=== PATIENT | male | born 1945 | race Caucasian/White ===

== ENCOUNTER 2017-12-20 10:13 | Day surgery (SDC) | payer MEDICARE ==
[2017-12-19 16:30] LABS: BASOPHILS % (AUTO) 0.6 % (0-1); EOSINOPHILS # (AUTO) 0.5 X10'3 (0-0.9); EOSINOPHILS % (AUTO) 7.4 % (0-6); LYMPHOCYTES % (AUTO) 27.1 % (21-51); MEAN CORPUSCULAR HEMOGLOBIN 29.9 PG (27.0-31.0); MEAN CORPUSCULAR HGB CONC 33.4 % (33.0-36.5); MEAN CORPUSCULAR VOLUME 89.4 FL (78-98); MEAN PLATELET VOLUME 8.1 FL (7.4-10.4); MONOCYTES # (AUTO) 0.7 X10'3 (0-0.9); MONOCYTES % (AUTO) 9.6 % (2-12); NEUTROPHILS % (AUTO) 55.3 % (42-75); PRE OP HEMATOCRIT 40.7 % (42.0-52.0); PRE OP HEMOGLOBIN 13.6 g/dL (14.0-17.9); PRE OP PLATELET COUNT 254 X10'3 (140-440); RED BLOOD COUNT 4.55 X10'6 (4.70-6.10); RED CELL DISTRIBUTION WIDTH 14.1 % (11.5-14.5)
[2017-12-19 16:41] LABS: CLARITY,URINE Clear (Clear); COLOR,URINE Yellow (Yellow); GLUCOSE, URINE Negative (Neg); KETONES,URINE 15 mg/dl (Neg); LEUKOCYTE ESTERASE ,URINE Negative (Neg); NITRITES, URINE Negative (Neg); OCCULT BLOOD,URINE Negative (Neg); PH,URINE 6.5 (4.8-8.0); PROTEIN,URINE Negative (Neg)
[2017-12-19 16:46] LABS: UA COLLECTION TYPE CLN CATCH MIDSTREAM
[2017-12-19 16:51] LABS: ALBUMIN 3.7 G/DL (3.4-5.0); ALBUMIN/GLOBULIN RATIO 1.2 (1.1-1.5); ALKALINE PHOSPHATASE 97 IU/L (46-116); BLOOD UREA NITROGEN 17 MG/DL (7-18); CALCIUM 9.1 MG/DL (8.5-10.1); CHLORIDE 104 MMOL/L (99-107); CREATININE 0.81 MG/DL (0.60-1.10); PRE OP ALT 23 U/L (30-65); PRE OP ANION GAP 6 (8-16); PRE OP AST 20 U/L (10-37); PRE OP BILIRUB, TOTAL 0.4 MG/DL (0.0-1.0); PRE OP GLUCOSE 99 MG/DL (70-104); PRE OP POTASSIUM 3.8 MMOL/L (3.4-5.1); PRE OP SODIUM 140 MMOL/L (135-145); TOTAL CARBON DIOXIDE 30.2 MMOL/L (24-32); TOTAL PROTEIN 6.9 G/DL (6.4-8.2); eGFR > 90 ML/MIN
[2017-12-20] VITALS (9 sets, daily range): BP systolic 118–135; BP diastolic 70–90
[~2017-12-20] VITALS: Ht 170.2 cm; Wt 76.0 kg
[~2017-12-20 10:13] MED LIST: NO HOME MEDS PO; albuterol 2.5 MG/3 ML nebule NEB ONE; ceFAZolin 2gm in dextrose, iso 100 ML IV ONE; famotidine 20mg tablet PO ONE; ringers solution, lacted 1,000 ML IV SCH
[2017-12-20] MEDS ORDERED: ringers solution, lacted 1,000 ML IV SCH (10:54)
[2017-12-20] MEDS ORDERED: ceFAZolin 1000mg inj ONE (10:55)
[2017-12-20] MEDS ORDERED: hydrALAZINE 20mg/ml inj. IV PRN (10:55)
[2017-12-20] MEDS ORDERED: morphine 4 MG/ML inj SYRINge IV PRN ×2 (10:55)
[2017-12-20] MEDS ORDERED: fentaNYL/PF 50MCG/1 ML 2ML syringe IV PRN ×2 (10:55)
[2017-12-20] MEDS ORDERED: ondansetron/PF 4mg/2ml inj IV PRN (10:55)
[2017-12-20] MEDS ORDERED: BUPIVAcaine/PF 7.5mg/ml (0.75%) 10ml vial ONE (10:55)
[2017-12-20] MEDS ORDERED: labetalol 20mg/4ml (5mg/ml) syringe IV PRN (10:55)
[2017-12-20] MEDS ORDERED: sevoflurane 250ml liquid IH ONE (12:09)
[2017-12-20] MEDS ORDERED: fentaNYL/PF 50MCG/1 ML 2ML syringe ONE (12:17)
[2017-12-20] MEDS ORDERED: propofol inj 20 ML IV ONE (12:17)
[2017-12-20] MEDS ORDERED: midazolam 2 mg/2 ml injection ONE (12:17)
[2017-12-20] MEDS ORDERED: LIDOcaine 2% (20mg/ml) 5ml vial ONE (12:17)
== END 2017-12-20 12:54 | disposition home or self-care (01) ==
LOC: PAS 10:13
PROVIDERS: ATTEND Surgery
DX: D17.21 Benign lipomatous neoplasm of skin and subcutaneous tissue of right arm (principal); E78.5 Hyperlipidemia, unspecified; I10 Essential (primary) hypertension; Z98.41 Cataract extraction status, right eye; Z98.42 Cataract extraction status, left eye; Z87.891 Personal history of nicotine dependence; Z90.89 Acquired absence of other organs; Z98.890 Other specified postprocedural states
CPT/HCPCS: 23073; 36415; 80053; 81003; 85025; 93005; J0690; J2001; J2250; J2704; J3010; J3490; J7120; A7000

== ENCOUNTER 2019-07-08 07:37 | Emergency (ER) | payer MEDICARE ==
[~2019-07-08] VITALS: Ht 172.7 cm; Wt 83.3 kg
[~2019-07-08 07:37] MED LIST changes: -albuterol 2.5 MG/3 ML nebule NEB ONE; -ceFAZolin 2gm in dextrose, iso 100 ML IV ONE; -famotidine 20mg tablet PO ONE; -ringers solution, lacted 1,000 ML IV SCH
[2019-07-08 07:48] VITALS: BP 143/83
[2019-07-08] MEDS ORDERED: BENZ-16 PO (08:45)
[2019-07-08] MEDS ORDERED: AZIT250T PO (08:45)
== END 2019-07-08 08:53 | disposition home or self-care (01) ==
LOC: ER 07:38
DX: J06.9 Acute upper respiratory infection, unspecified (principal); J44.9 Chronic obstructive pulmonary disease, unspecified; Z87.01 Personal history of pneumonia (recurrent); Z87.891 Personal history of nicotine dependence; Z79.899 Other long term (current) drug therapy
CPT/HCPCS: 71046; 99283